=== PATIENT | female | born 1995 | race Two or more races ===

== ENCOUNTER 2017-10-30 01:54 | Inpatient (IN) | payer MEDICAID ==
[2017-10-30] MEDS ORDERED: CEFAZOLIN 2 GM/50 ML (PMX) 50 ML IVPB (02:25)
[2017-10-30 02:46] LABS: ADD MAN DIFF? NO
[2017-10-30] MEDS ORDERED: PHENYLephrine (100 MCG/ML) 5ML SYG ×3 (02:46→03:15)
[2017-10-30] MEDS ORDERED: morphine SULFATE/PF (10 MG/10 ML) INJ (02:46)
[2017-10-30] MEDS: SOD CHLORIDE 0.9% 1,000 ML IV (02:46)
[2017-10-30] MEDS ORDERED: OXYTOCIN 10 UNIT INJ (02:46)
[2017-10-30 02:49] LABS: WHITE BLOOD COUNT 8.3 10^3/ul (4.8-10.8)
[2017-10-30 02:49] LABS: BASOPHILS % 0.1 % (0.0-2.0); EOSINOPHILS % 0.1 % (0.0-7.0); HEMATOCRIT 38.9 % (37.0-47.0); HEMOGLOBIN 13.3 g/dl (12.0-16.0); LYMPHOCYTES # 3.1 10^3/ul (0.8-2.9); LYMPHOCYTES % 37.3 % (15.0-51.0); MEAN CORPUSCULAR HEMOGLOBIN 29.8 pg (29.0-33.0); MEAN CORPUSCULAR HGB CONC 34.2 g/dl (32.0-37.0); MEAN PLATELET VOLUME 11.3 fl (7.4-10.4); MONOCYTE # 0.5 10^3/ul (0.3-0.9); MONOCYTES % 5.4 % (0.0-11.0); NEUTROPHIL # 4.7 10^3/ul (1.6-7.5); NEUTROPHILS % 56.7 % (39.0-77.0); PLATELET COUNT 239 10^3/UL (140-415); RED BLOOD COUNT 4.47 10^6/ul (4.20-5.40); RED CELL DISTRIBUTION WIDTH 13.7 % (11.5-14.5)
[2017-10-30] MEDS ORDERED: CEFAZOLIN 2 GM/50 ML (PMX) 50 ML IV (03:00)
[2017-10-30] MEDS ORDERED: LACTATED RINGER'S 1,000 ML IV ×2 (03:00→08:40)
[2017-10-30] MEDS ORDERED: LACTATED RINGER'S 500 ML IV (03:00)
[2017-10-30] MEDS ORDERED: CARBOPROST 250 MCG INJ IM ×2 (03:00→09:00)
[2017-10-30] MEDS ORDERED: OXYTOCIN 30 UNITS/LR 500 ML IV ×2 (03:00→09:00)
[2017-10-30] MEDS ORDERED: MISOPROSTOL 200 MCG TAB PR ×2 (03:00→09:00)
[2017-10-30] MEDS ORDERED: METHYLERGONOVINE 0.2 MG INJ IM ×2 (03:00→09:00)
[2017-10-30] MEDS ORDERED: METOCLOPRAMIDE 10 MG INJ (03:05)
[2017-10-30] MEDS ORDERED: ONDANSETRON 4 MG INJ (03:05)
[2017-10-30] MEDS ORDERED: DEXAMETHASONE 4 MG/ML 1 ML INJ (03:05)
[2017-10-30] MEDS ORDERED: KETOROLAC 30 MG INJ (03:05)
[2017-10-30 03:29] LABS: INR 0.82; PROTIME 11.4 Sec (11.9-14.9); PT RATIO 0.9
[2017-10-30 03:30] LABS: PARTIAL THROMBOPLASTIN TIME 26.4 Sec (25.0-35.0)
[2017-10-30] MEDS ORDERED: HYDROCODONE/APAP (5/325) TAB PO (03:30)
[2017-10-30] MEDS ORDERED: morphine 2 MG INJ IV (03:30)
[2017-10-30] MEDS ORDERED: morphine 4 MG/ML VIAL IV (03:30)
[2017-10-30] MEDS ORDERED: NALBUPHINE HCL (10 MG/1 ML) INJ IV (03:30)
[2017-10-30] MEDS ORDERED: HYDROmorphONE 0.5 MG/0.5 ML SYG IV ×2 (03:30)
[2017-10-30] MEDS ORDERED: ACETAMINOPHEN 500 MG TAB PO (03:30)
[2017-10-30] MEDS ORDERED: DIPHENHYDRAMINE 50 MG INJ IV (03:30)
[2017-10-30] MEDS ORDERED: ONDANSETRON 4 MG INJ IV (03:30)
[2017-10-30] MEDS ORDERED: NALOXONE (0.4 MG/ML) INJ IV (03:30)
[2017-10-30 03:51] LABS: AADO2 Cord Arterial 66.8 mmHg; Arterial Cord Blood pCO2 51.3 mmHG (25-50); CBA Base Excess 0.1 mmol/L; CBA COHb 1.6 %; CBA Oxygen Sat 52.3 mmHG; CBA Total Hemglobin 15.7 g/dl; Cord Blood Arterial pO2 21.5 mmHG (15.0-45.0); Fraction OxyHgb Cord Arterial 50.8 %; MODE ROOM AIR; MetHgb Cord Arterial 1.2 %; Sample Type CBA; Site CORD
[2017-10-30 03:52] LABS: CBV Base Excess -1.6 mmol/L; CBV COHb 1.6 %; CBV Oxygen Sat 50.4 mmHG; CBV Total Hemglobin 15.6 g/dl; Cord Blood Venous pO2 19.9 mmHG (15.0-45.0); Fraction OxyHgb Cord Venous 48.8 %; MODE ROOM AIR; MetHgb Cord Venous 1.5 %; Sample Type CBV; Site CORD
[2017-10-30 04:00] LABS: HEPATITIS B SURFACE ANTIGEN NEGATIVE (NEGATIVE)
[2017-10-30] MEDS: OXYTOCIN 30 UNITS/LR 500 ML IV ×3 (06:32→08:03)
[2017-10-30] MEDS ORDERED: OXYTOCIN 30 UNITS/LR 500 ML BAG IV (07:00)
[2017-10-30 07:38] LABS: AMPHETAMINE/METHAMPHETAMINE Negative (NEGATIVE); BARBITURATES Negative (NEGATIVE); BENZODIAZEPINES Negative (NEGATIVE); CANNABINOIDS Negative (NEGATIVE); COCAINE Negative (NEGATIVE); OPIATES Negative (NEGATIVE)
[2017-10-30] MEDS: SENNA/DOCUSATE NA (8.6MG/50MG) TAB PO ×2 (09:39→21:00)
[2017-10-30 10:59] LABS: ADD MAN DIFF? NO
[2017-10-30 11:06] LABS: BASOPHILS % 0.1 % (0.0-2.0); HEMATOCRIT 36.2 % (37.0-47.0); HEMOGLOBIN 12.1 g/dl (12.0-16.0); LYMPHOCYTES # 1.9 10^3/ul (0.8-2.9); LYMPHOCYTES % 18.9 % (15.0-51.0); MEAN CORPUSCULAR HEMOGLOBIN 29.6 pg (29.0-33.0); MEAN CORPUSCULAR HGB CONC 33.4 g/dl (32.0-37.0); MEAN CORPUSCULAR VOLUME 88.5 fl (82.0-101.0); MEAN PLATELET VOLUME 11.4 fl (7.4-10.4); MONOCYTE # 0.5 10^3/ul (0.3-0.9); MONOCYTES % 4.5 % (0.0-11.0); NEUTROPHIL # 7.7 10^3/ul (1.6-7.5); NEUTROPHILS % 76.1 % (39.0-77.0); PLATELET COUNT 230 10^3/UL (140-415); RED BLOOD COUNT 4.09 10^6/ul (4.20-5.40); RED CELL DISTRIBUTION WIDTH 13.6 % (11.5-14.5)
[2017-10-30 11:06] LABS: WHITE BLOOD COUNT 10.1 10^3/ul (4.8-10.8)
[2017-10-30] MEDS: LACTATED RINGER'S 500 ML IV (13:01)
[2017-10-30 16:01] LABS: HEPATITIS B SURFACE ANTIGEN NEGATIVE (NEGATIVE)
[2017-10-30] MEDS: LANOLIN 7 GM TUBE TOP (21:55)
[2017-10-30] MEDS: KETOROLAC 30 MG INJ IV (22:23)
[2017-10-30 22:36] LABS: RAPID PLASMA REAGIN NONREACTIVE (NR)
[2017-10-31] MEDS: IBUPROFEN 600 MG TAB PO ×3 (05:53→18:25)
[2017-10-31 08:21] LABS: ADD MAN DIFF? NO
[2017-10-31 08:26] LABS: BASOPHILS % 0.2 % (0.0-2.0); EOSINOPHILS % 0.3 % (0.0-7.0); HEMATOCRIT 34.1 % (37.0-47.0); HEMOGLOBIN 11.7 g/dl (12.0-16.0); LYMPHOCYTES # 2.9 10^3/ul (0.8-2.9); LYMPHOCYTES % 30.8 % (15.0-51.0); MEAN CORPUSCULAR HEMOGLOBIN 30.3 pg (29.0-33.0); MEAN CORPUSCULAR HGB CONC 34.3 g/dl (32.0-37.0); MEAN CORPUSCULAR VOLUME 88.3 fl (82.0-101.0); MEAN PLATELET VOLUME 11.6 fl (7.4-10.4); MONOCYTE # 0.7 10^3/ul (0.3-0.9); MONOCYTES % 7.2 % (0.0-11.0); NEUTROPHIL # 5.8 10^3/ul (1.6-7.5); NEUTROPHILS % 61.1 % (39.0-77.0); PLATELET COUNT 224 10^3/UL (140-415); RED BLOOD COUNT 3.86 10^6/ul (4.20-5.40); RED CELL DISTRIBUTION WIDTH 14.1 % (11.5-14.5)
[2017-10-31 08:26] LABS: WHITE BLOOD COUNT 9.5 10^3/ul (4.8-10.8)
[2017-10-31] MEDS: SENNA/DOCUSATE NA (8.6MG/50MG) TAB PO ×2 (09:36→21:31)
[2017-11-01] MEDS: IBUPROFEN 600 MG TAB PO ×3 (00:14→11:41)
[2017-11-01] MEDS: SENNA/DOCUSATE NA (8.6MG/50MG) TAB PO ×2 (10:27→11:41)
[2017-11-01] MEDS: DIPHTH/TET/ACEL PERTUSS (ADULT) 0.5 ML VIAL IM* (11:44)
== END 2017-11-01 17:00 | disposition home or self-care (01) | DRG 766 ==
LOC: OBT 01:54 → L-D 01:55 → OBT 02:39 → L-D 02:41 → PP1 08:46
PROVIDERS: Obstetrics & Gynecology
PROC: 10D00Z1 Extraction of Products of Conception, Low, Open Approach (ICD-10-PCS; principal; 2017-10-30 03:00)
DX: O76 Abnormality in fetal heart rate and rhythm complicating labor and delivery (principal); Z37.0 Single live birth; Z3A.39 39 weeks gestation of pregnancy
CPT/HCPCS: 36415; 36600; 80307; 82803; 85025; 85610; 85730; 86592; 86850; 86900; 86901; 87340; 88307; 90715; 94760; 99464